=== PATIENT | male | born 1950 | race Two or more races ===

== ENCOUNTER 2016-10-29 11:30 | Outpatient (CLI) | payer MEDICARE, MEDICAID ==
[~2016-10-29 11:30] MED LIST: DILAUDID2 MG ORAL; DOCUSATE SODIU100 MG ORAL; DUCOSATE; ENALAPRIL-HCTZ1 EACH ORAL; FAMOTIDINE20 MG ORAL; ISENTRESS400 MG ORAL; KLONOPIN1 MG ORAL; NORCO 10/3251 EA ORAL; OMEPRAZOLE20 M2 ORAL; PROSCAR5 MG ORAL; TEMAZEPAM30 MG ORAL; [UNRECOGNIZED DRUG - OTHER] PO
--- NOTE | 2016-10-29 12:16 | Diagnostic Imaging Report ---
Indication: Cough Comparison: 02/15/14 2 views of the chest obtained. Findings: Cardiomediastinal silhouette and pulmonary vascularity are within normal limits for age. The diaphragmatic contour is smooth and costophrenic angles are sharp. No pleural effusions are identified. The bones are unremarkable. Impression: No acute disease
== END 2016-10-29 13:30 | disposition home or self-care (01) ==
LOC: RAD 11:30
DX: Z01.818 Encounter for other preprocedural examination (principal); R05 Cough
CPT/HCPCS: 71020